=== PATIENT | male | born 1990 | race Caucasian/White ===

== ENCOUNTER 2016-10-30 21:05 | Emergency (ER) | payer BC, OTHER ==
[~2016-10-30] VITALS: Ht 188 cm; Wt 95.3 kg
[2016-10-30] MEDS ORDERED: BSS 15 ML IR ONE (23:00)
[2016-10-30] MEDS ORDERED: FLUORESCEIN (FLUOR-I-STRIPS) 1 MG STRP OU ONE (23:00)
[2016-10-30] MEDS ORDERED: TETRACAINE 0.5% OPHTH SOLN 4 ML BTL (SINGLE DOSE ONLY) OP ONE (23:00)
--- NOTE | 2016-10-30 23:32 | ED EENT ---
History of Present Illness General Chief Complaint: Eye Problems Stated Complaint: BATH AND TILE CHEMICALS IN R EYE Nursing Triage Note: PT TO ED 10 W/ MOTHER FOR C/O RED EYE IRRITATION ONSET WHILE AT WORK. 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 DOES REPORT HE FLUSHED IT IMMEDIATELY AFTER Source: patient Exam Limitations: no limitations History of Present Illness Time seen by provider: 22:51 Initial Comments This 26-year-old young man presents to the emergency room with complaints of right eye irritation after splashing a cleaning chemical ([employer] containing ammonia compounds) in his eye. He did flush his high with water at work. Initially his vision was blurry but has improved now. He does normally wear contacts. He did remove of the contact and dispose of it. He now has a mild to moderate foreign-body sensation in the eye. Allergies and Home Medications Allergies Coded Allergies: No Known Drug Allergies (Unverified , 10/30/16) Review of Systems Constitutional: no symptoms reported Eyes: See HPI Ears: No Symptoms Reported Nose: no symptoms reported Mouth: no symptoms reported Throat: no symptoms reported Respiratory: no symptoms reported Skin: no symptoms reported Neurological: No Symptoms Reported Past Nviaxkx-Iuuwil-Uywdtx Hx Patient Social History Alcohol Use: Occasionally Uses Recreational Drug Use: No Smoking Status: Former Smoker Type Used: Cigarettes Former Smoker, Quit: May 11, 2016 2nd Hand Smoke Exposure: No Recent Foreign Travel: No Contact w/Someone Who Travel: No Recent Infectious Disease Expo: No Recent Hopitalizations: No Physical Abuse: No Sexual Abuse: No Mistreated: No Fear: No Surgeries Surgeries: Adenoidectomy, Ear Surgery, Tonsillectomy Respiratory History of Respiratory Disorde: No Cardiovascular History of Cardiac Disorders: No Neurological History of Neurological Disord: No Genitourinary History of Genitourinary Disor: No Gastrointestinal History of Gastrointestinal Di: No Musculoskeletal History of Musculoskeletal Dis: No Endocrine History of Endocrine Disorders: No HEENT History of HEENT Disorders: No Cancer History of Cancer: No Did You Recieve Any Treatments: No Psychosocial History of Psychiatric Problem: No Suicide Risk Score: 0 Integumentary History of Skin or Integumenta: No Blood Transfusions History of Blood Disorders: No Physical Exam Vital Signs General Appearance: WD/WN, no apparent distress Eyes: bilateral eye normal inspection, bilateral eye PERRL, bilateral eye EOMI Ears: bilateral ear auricle normal Nose: normal inspection Mouth/Throat: normal mouth inspection Neck: normal inspection Eye : Location: right eye Eye Irrigated w/ Saline (ccs): 10 Anesthesia (gtts): Tetracaine Progress/Procedure Conclusion Patient's eye was anesthetized with tetracaine. Fluorescein exam was then performed and revealed no abnormalities. His eye was further irrigated with balanced salt saline. Progress/Results/Core Measures Results/Orders My Orders Vital Signs/I&O Blood Pressure Mean: 103 Departure Impression Impression: Primary Impression: Chemical exposure of eye Disposition: HOME, SELF-CARE Condition: Improved Departure-Patient Inst. Referrals: FABIANO OSBORN MD (PCP/Family) Primary Care Physician RAMONITA SARAH OD Patient Instructions: Chemical Eye Injury (DC) Add. Discharge Instructions: You may use the saline solution provided in the ER and/or artificial tears purchased [id number] to lubricate the eye for comfort. If you have blurry vision or continued pain in the morning, please follow-up with an eye doctor as soon as possible. Contact information for Dr. Sarah's office has been provided. Return to the emergency room if symptoms worsen. Avoid contact use until any symptoms of irritation have resolved. All discharge instructions reviewed with patient and/or family. Voiced understanding. TYREL CHAMBERLAIN MD Oct 30, 2016 23:32
[2016-10-30 23:35] VITALS: BP 0/0
--- OUTSIDE RECORDS SUMMARY | 2016-11-02 08:53 | XMS REPORT | Continuity of Care Document ---
Author Author [facility] Organization [facility] Address Unknown Phone Unavailable Allergies Medications Problems Date Dx Coded Attending Type Code Diagnosis Diagnosed By 10/30/2016 UMAIR OVIEDO, HIPOLITO Bynum Ot 368.9 VISUAL DISTURBANCE NOS Procedures Results Encounters ACCT No. Visit Date/Time Discharge Status Pt. Type Provider Facility Loc./Unit Complaint [id number] 10/30/2016 21:07:00 2016 23:35:00 DIS Emergency BULMARO OVIEDO, TYREL Walters [facility] ER BATH AND TILE CHEMICALS IN R EYE [id number] 09/28/2012 15:34:00 2012 23:59:59 CLS Outpatient HIPOLITO BLOCK MD [facility] RAD VISUAL FIELD CHANGES
== END 2016-10-30 23:35 | disposition home or self-care (01) ==
LOC: EDUNIT# 21:05 → ER 21:07
DX: H57.8 Other specified disorders of eye and adnexa (principal); Z77.098 Contact with and (suspected) exposure to other hazardous, chiefly nonmedicinal, chemicals; Z90.89 Acquired absence of other organs; Z87.891 Personal history of nicotine dependence
CPT/HCPCS: 99283